=== PATIENT | female | born 1975 | race Caucasian/White ===

== ENCOUNTER 2017-06-19 22:04 | Emergency (ER) | payer SELFPAY ==
[~2017-06-19] VITALS: Ht 165.1 cm; Wt 72.7 kg
[~2017-06-19 22:04] MED LIST: DOXY100T20 PO; HYDR-3498 PO; HYDR-762 PO; IBUP800T25 PO; OMEP20CA9 PO; RANI150T9 PO
[2017-06-19 22:21] VITALS: Ht 165.1 cm; Wt 72.7 kg
[2017-06-19] MEDS ORDERED: KETOROLAC 30 MG INJ IM STA (23:16)
[2017-06-19] MEDS ORDERED: HYDROCODONE/APAP (5/325) TAB PO ONE (23:30)
--- NOTE | 2017-06-20 00:01 | RADRPT ---
PROCEDURE: XR Hip. CLINICAL INDICATION: Left hip pain. TECHNIQUE: AP and frog lateral views of the left hip were performed. COMPARISON: CT abdomen and pelvis dated 07/11/2015. FINDINGS: There is normal mineralization and alignment. No fracture or osseous lesion is identified. There are normal joints without evidence of arthritis or effusion. Small dystrophic calcifications are seen over the expected location of the insertional gluteus mediu s, suggesting calcific tendinosis. These findings are increased over interval since 07/11/2015. The soft tissues are otherwise unremarkable. 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 RPTAT: [facility] Physician Ilene Date Time Electronically viewed and signed by Physician Ilene on 06/20/2017 00:01 /
[2017-06-20] MEDS ORDERED: morphine 10 MG INJ IM ONE (00:30)
[2017-06-20] MEDS ORDERED: KETO60VI24 IM (01:11)
[2017-06-20] MEDS ORDERED: HYDR-906 PO (01:19)
[2017-06-20] MEDS ORDERED: KETO10TA PO (01:39)
--- NOTE | 2017-06-20 01:48 | ERA ---
ER Documentation Chief Complaint Date/Time DATE: 06/20/17 TIME: 01:40 Chief Complaint body pain mostly on her hips today HPI 41-year-old female with a history of fibromyalgia presents with a chief complaint of left hip pain. Patient had right hip pain 1 week ago that resolved spontaneously. Denies trauma. Patient states that this is been increasing over the past couple days has become unbearable. Saw chiropractor yesterday without relief. Denies any recent illness, dysuria, hematuria, loss of bowel or bladder function, paresthesias, fever, chills. Pain increases with movement and touch. 10 out of 10 pain. Denies any heat or rash in the area. Monogamous relationship. Denies back pain. No recent travel. Patient has no other complaints and describes no other associated manifestations. Nursing notes have been reviewed and are consistent with history given. ROS All systems reviewed and are negative except as per history of present illness. Medications Home Meds Active Scripts Ketorolac Tromethamine* (Ketorolac Tromethamine*) 10 Mg Tablet, 10 MG PO Q6H Y for PAIN for 4 Days, TAB Prov:HEIKE LOYA PA-C 06/20/17 Hydrocodone/Acetaminophen (Rocky Comfort 5-325 Tablet) 1 Each Tablet, 1 TAB PO Q6H Y for PAIN, #7 TAB Prov:HEIKE LOYA PA-C 06/20/17 Ibuprofen* (Motrin*) 800 Mg Tab, 800 MG PO Q6, #15 TAB Prov:NADEEM DUNCAN NP 01/09/16 Hydrocodone Bit-Acetaminophen* (Rocky Comfort*) 5-325 Mg Tab, 1 TAB PO Q6 Y for PAIN, # 7 TAB Prov:NADEEM DUNCAN NP 01/09/16 Doxycycline Hyclate* (Doxycycline Hyclate*) 100 Mg Tablet., 100 MG PO BID for 10 Days, TAB Prov:NADEEM DUNCAN NP 01/09/16 Omeprazole* (Prilosec*) 20 Mg Capsule., 20 MG PO DAILY, #30 CAP Prov:ALICIA LAM PA-C 09/01/15 Ranitidine Hcl* (Zantac*) 150 Mg Tablet, 150 MG PO BID Y for PAIN, #30 TAB Prov:ALICIA LAM PA-C 09/01/15 Hydrocodone Bit-Acetaminophen* (Rocky Comfort*) 5-325 Mg Tab, 1 TAB PO Q6 Y for PAIN, # 20 TAB Prov:ALICIA LAM PA-C 09/01/15 Hydrocodone Bit-Acetaminophen* (Rocky Comfort*) 10-325 Mg Tablet, 1 TAB PO Q6 Y for PAIN , #20 TAB Prov:ANNI HAMEED 07/11/15 Discontinued Scripts Ketorolac Tromethamine* (Toradol*) 60 Mg/2 Ml Soln, 60 MG IM Q8 for 4 Days, VIAL Prov:HEIKE LOYA PA-C 06/20/17 Allergies Allergies: Coded Allergies: No Known Allergy (Unverified , 06/19/17) PMhx/Soc History of Surgery: Yes (, cholecystectomy) Anesthesia Reaction: No Hx Neurological Disorder: No Hx Respiratory Disorders: No Hx Psychiatric Problems: No Hx Miscellaneous Medical Probl: Yes (pancreatitis, FIBROMYALGIA) Hx Alcohol Use: No Hx Substance Use: No Hx Tobacco Use: No Smoking Status: Never smoker Physical Exam Vitals Vital Signs Date Time Temp Pulse Resp B/P Pulse Ox O2 Delivery O2 Flow Rate FiO2 06/19/17 22:21 98.7 91 19 107/51 98 Physical Exam Const: 41-year-old female moderate distress Head: Atraumatic Eyes: Normal Conjunctiva ENT: Normal External Ears, Nose and Mouth. Neck: Full range of motion..~ No meningismus. Resp: Clear to auscultation bilaterally Cardio: Regular rate and rhythm, no murmurs Abd: Soft, non tender, non distended. Normal bowel sounds Skin: No petechiae or rashes Back: No midline or flank tenderness Ext: No cyanosis, or edema. Decreased range of motion of the left hip secondary to pain. Tenderness palpation of the left hip. Right hip unremarkable. No skin abnormalities or swelling noted. Neur: Awake and alert Psych: Normal Mood and Affect Results 24 hrs Current Medications Medications (Trade) Dose Ordered Sig/Beau Route PRN Reason Start Time Stop Time Status Last Admin Dose Admin Acetaminophen/ Hydrocodone Bitart (Rocky Comfort (5/325)) 1 tab ONCE ONCE PO 06/19/17 23:30 06/19/17 23:31 DC 06/19/17 23:38 Ketorolac Tromethamine (Toradol) 30 mg ONCE STAT IM 06/19/17 23:16 06/19/17 23:18 DC 06/19/17 23:38 Morphine Sulfate (morphine) 4 mg ONCE ONCE IM 06/20/17 00:30 06/20/17 00:31 DC 06/20/17 00:48 Procedures/MDM 31-year-old female presenting with left hip pain. Right hip pain x2 weeks ago that resolved spontaneously. X-ray of the hip was obtained, read by the radiologist, and given the following impression: Calcific tendinitis of the left gluteal insertion site, otherwise unremarkable. At this time I have little suspicion for bony pathology, neurovascular compromise, septic joint, or other serious bacterial infection. I am unable to exclude more chronic conditions including gout, pseudogout, among others. Most likely diagnosis is left hip pain due to unknown etiology. Patient was given morphine IM, Toradol IM, and Rocky Comfort in the ED with relief of symptoms. Patient will be discharged with continuation of Toradol 10 mg p.o. every 8 hours as needed, Rocky Comfort 7 tabs, lifestyle modifications. I have spoke with the patient regarding their condition and future management. They have verbally responded that they understand their status and treatment plan. The patients vitals are stable, and their current condition is appropriate for discharge. The patient will be given discharge instructions with return precautions. Departure Diagnosis: Primary Impression: Hip pain Qualified Code: M25.552 - Pain of left hip joint Condition: Stable Patient Instructions: Hip Contusion Referrals: [facility] YOU HAVE RECEIVED A MEDICAL SCREENING EXAM AND THE RESULTS INDICATE THAT YOU DO NOT HAVE A CONDITION THAT REQUIRES URGENT TREATMENT IN THE EMERGENCY DEPARTMENT. FURTHER EVALUATION AND TREATMENT OF YOUR CONDITION CAN WAIT UNTIL YOU ARE SEEN IN YOUR DOCTORS OFFICE WITHIN THE NEXT 1-2 DAYS. IT IS YOUR RESPONSIBILITY TO MAKE AN APPOINTMENT FOR FOLOW-UP CARE. IF YOU HAVE A PRIMARY DOCTOR --you should call your primary doctor and schedule an appointment IF YOU DO NOT HAVE A PRIMARY DOCTOR YOU CAN CALL OUR PHYSICIAN REFERRAL HOTLINE AT IF YOU CAN NOT AFFORD TO SEE A PHYSICIAN YOU CAN CHOSE FROM THE FOLLOWING [facility] [address] [facility] [address] [facility] [address] [facility] [address] [facility] [facility] [address] [facility]. [facility]. [address] [facility] Urgent Care 7 a.m.- 11 p.m. Every Day of the Week NO APPOINTMENT OR AUTHORIZATION NEEDED [facility] () Usted se kirk hecho un examen mdico de control que le indica que no est en kylie condicin que requiera tratamiento urgente en el Departamento de Emergencia. Un estudio ms profundo y el tratamiento de mayorga condicin pueden esperar sin ningn riesgo hasta que usted sea atendida/o en el consultorio de mayorga mdico o kylie cl javier. Es responsabilidad suya arreglar kylie getachew para el seguimiento del hanane. MANEJO DE CONDICIONES NO URGENTES EN EL FUTURO 1) Si usted tiene un mdico de atencin primaria: Usted debera llamar a mayorga mdico de atencin primaria antes de venir al departamento de emergencia. Despus de las horas de consultorio, mayorga doctor o mayorga asociado/a est disponible por telfono. El mdico o enfermero de chrissy en el servicio telefnico puede asesorarle por samm medio para atender el problema, o hanane contrario se puede programar kylie getachew. 2) Si usted no tiene un mdico de atencin primaria: Llame al mdico o clnica de referencia que aparece abajo lee las horas de consultorio para hacer kylie getachew para que le vean. CLINICAS: [facility] [phone] [address] [facility] 059 [phone] [address] [facility] [phone] [address] [facility] [phone] [address] [facility] [facility] [phone] [address] [facility] [phone] [address] [facility] Hours: Mon-Fri 9:00 AM - 5:00 PM Additional Instructions: Follow up with your PCP within the next 1-3 days for a more thorough evaluation and a possible referral to a specialist. Return the the emergency department immediately if symptoms worsen or change. If you have any questions regarding medications, ask your pharmacist or us before you leave. If any adverse reactions occur while taking your medications, discontinue the treatment and return to the emergency department immediately. Take your medications as directed, and complete the entire course of treatment. HEIKE LOYA PA-C Jun 20, 2017 01:48
[2017-06-20 02:33] LABS: ADD UMIC NO; UR ASCORBIC ACID NEGATIVE (NEGATIVE); UR BACTERIA FEW /HPF (NONE SEEN); UR BILIRUBIN (Dip) NEGATIVE (NEGATIVE); UR BLOOD (Dip) NEGATIVE (NEGATIVE); UR CLARITY SLIGHTLY CLOUDY (CLEAR); UR COLOR YELLOW (YELLOW); UR GLUCOSE (Dip) NEGATIVE (NEGATIVE); UR KETONES (Dip) NEGATIVE (NEGATIVE); UR LEUKOCYTE ESTERASE (Dip) NEGATIVE Leu/ul (NEGATIVE); UR NITRITE (Dip) NEGATIVE (NEGATIVE); UR RBC 0 /HPF (0-5); UR SPECIFIC GRAVITY (Dip) 1.012 (1.003-1.030); UR SQUAMOUS EPITHELIAL CELL FEW /HPF (FEW); UR TOTAL PROTEIN (Dip) NEGATIVE (NEGATIVE); UR UROBILINOGEN (Dip) NEGATIVE (NEGATIVE)
== END 2017-06-20 01:43 | disposition home or self-care (01) ==
LOC: FTE 22:04
DX: M25.552 Pain in left hip (principal)
CPT/HCPCS: 73510; 81001; 81003; 96372; 99284; J1885; J2270